=== PATIENT | male | born 1945 | race Caucasian/White ===

== ENCOUNTER 2017-10-07 11:27 | Inpatient (IN) | payer MEDICARE ==
[~2017-10-07] VITALS: Ht 160 cm; Wt 57.7 kg
[~2017-10-07 11:27] MED LIST: AMANTADINE100 MG PO; ASPIRIN LOW DOS81 M1 PO; ATENOLOL50 MG PO; AUGMENTIN500TAB PO; GLIPIZIDE5 M1 PO; GLIPIZIDE5 MG PO; LISINOP/HCTZ1 TAB PO; LISINOPRIL PO; LISINOPRIL10 MG PO; LOPRESSOR 550 MG/TAB PO; METFORMIN1000 MG PO; METFORMIN500 MG PO; ZESTRIL PO
--- NOTE | 2017-10-07 11:52 | NUR ---
PT TO ER ROOM 15 BY EMS. PT UNDRESSED BY STAFF AND PLACED IN BAG. EXTREMELY STRONG URINE ODOR FROM URINE SOAKED CLOTHING. PT CHANGED INTO GOWN, GIVEN SHEET, ON CARDIAC/BP/O2 MONITOR.
[2017-10-07 12:44] LABS: HEMATOCRIT 29.3 % (39.0-50.0); HEMOGLOBIN 10.1 g/dl (14.0-18.0); IMMATURE GRANULOCYTES 0.8 % (0.0-1.0); MEAN CELL VOLUME 85.2 fL CALC (80.0-100.0); MEAN CORPUSCULAR HGB 29.4 pG CALC (26.0-32.0); MEAN CORPUSCULAR HGB CONC 34.5 g/L CALC (32.0-36.0); NEUT# 13.76 thou/uL (1.82-7.42); RED BLOOD COUNT 3.44 mill/uL (4.70-6.10); RED CELL DISTRI WIDTH 11.5 % (11.5-15.5)
[2017-10-07 12:59] LABS: ALBUMIN 2.7 g/dL (3.2-5.0); BILIRUBIN, TOTAL 0.3 mg/dL (0.0-1.4); CREATININE 3.1 mg/dL (0.7-1.3); POTASSIUM 4.7 mmol/l (3.5-5.1); TOTAL PROTEIN 5.8 g/dL (6.3-8.2)
[2017-10-07 13:54] LABS: URINE BILIRUBIN - DIPSTICK NEGATIVE (NEGATIVE); URINE BLOOD DIPSTICK SMALL (NEGATIVE); URINE COLOR YELLOW; URINE GLUCOSE - DIPSTICK >=1000 mg/dL (NEGATIVE); URINE KETONE NEGATIVE (NEGATIVE); URINE LEUK ESTERASE NEGATIVE (NEGATIVE); URINE NITRITE - DIPSTICK NEGATIVE (Negative); URINE PROTEIN - DIPSTICK 100 mg/dL (NEG-TRACE); URINE SPECIFIC GRAVITY 1.015; URINE UROBILINOGEN - DIPSTICK 0.2 E.U./dL (0.2)
[2017-10-07 14:00] LABS: URINE CLARITY CLEAR
--- NOTE | 2017-10-07 14:24 | NUR ---
PT SPEAKS APPROPRIATELY, ALTHOUGH WITH EYES CLOSED. PT WAS ABLE TO PROVIDE URINE SPECIMEN BOTTLE HAD BEEN LEFT BETWEEN HIS LEGS.
[2017-10-07 14:27] LABS: URINE SQUAMOUS EPITHELIAL CELL FEW EPI/hpf (0-FEW)
--- NOTE | 2017-10-07 16:10 | NUR ---
PT SHEETS CHANGED OUT PER WETNESS FROM LEAKING IV SITE. IV REMOVED AND REPLACED. 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
--- NOTE | 2017-10-07 16:35 | NUR ---
REPORT CALLED TO BRETT, TO FLOOR SOON.
[2017-10-07 16:41] VITALS: BP 134/80
--- NOTE | 2017-10-07 16:55 | NUR ---
PT.ARRIVED TO THE FLOOR VIA STRETCHER ACCOMPANIED BY REUBEN OF ED. PT.IS VERY WEAK UPON AMBULATION. PT.ASSESSED, ASSISTED TO [facility] WHERE HE HAD A MODERATE BROWN SOFT BM, PT.URINATED 125CC OF CLEAR YELLOW URINE. PT.LUNG SOUNDS ARE DIMINISHED IN ALL QUADRANTS. PT.DENIES PAIN/N/V AT THIS TIME. PT.SMELLS OF URINE AND STOOL. PT.REPORTS BEING BLIND IN HIS LEFT EYE AND MOSTLY BLIND IN LEFT EYE, PT.SITE APPEARS TO BE VERY LIMITED. CALL LIGHT WAS ADJUSTED FOR LIMITED VISION INDIVIDUALS AND PT.EDUCATED ON ACCESSING CALL LIGHT AND ASKING FOR ASSISTANCE BEFORE AMBULATING. PT.REPORTS THAT HE LIVES BY HIMSELF IN [facility] AND HAS A FRIEND THAT DRIVES HIM TO THE STORE. PT.WAS LOC TO SELF//LOCATION AND SITUATION AND DATE, BUT SEEMS TO BE SOMEWHAT LIMITED TO FOLLOWING DIRECTIONS. V/S AND BLOOD SUGAR HAVE BEEN ASSESSED. PT.LEFT IN BED TALKING ON CELL PHONE, BED ALARM ON AND CALL LIGHT W/IN REACH
--- NOTE | 2017-10-07 16:56 | NUR ---
PT TAKEN TO ROOM 271 WITHOUT INCIDENT, REPORT WAS TO BRETT.
--- NOTE | 2017-10-07 19:00 | NUR ---
RECEIVED CHANGE OF SHIFT REPORT FROM JAMES WEST. PATIENT VISUALLY IMPAIRED AND LYING IN BED AND APPEARS NOT TO BE IN NAY APPARENT ACUTE DISTRESS OR DISCOMFORT. DENIES PAIN. WILL CONTINUE TO MONITOR.
--- NOTE | 2017-10-07 19:00 | NUR ---
CALLED AND ORDERED PT.TO BE BLADDER SCANNED. RESULTS WERE CALLED BACK TO . HE ALSO ORDERED STRICT I&O'S TO BE KEPT ON PT. ORDER WAS WRITTEN IN CHART AND PASSED ON TO JAMES ABEL UPON REPORT.
[2017-10-07 19:25] VITALS: BP 143/89
[2017-10-07 23:58] VITALS: BP 148/78
--- NOTE | 2017-10-08 | NUR ---
PT INCONTINENT OF URINE. 2 HEAVILY SOAKED ABSORBANT PADS REMOVED.
[2017-10-08 04:00] VITALS: BP 135/70
--- NOTE | 2017-10-08 04:00 | NUR ---
PT RESTING QUIETLY. NO APPARENT ACUTE CHANGES NOTED IN PATIENT'S CONDITION.
[2017-10-08 05:23] LABS: HEMATOCRIT 27.5 % (39.0-50.0); HEMOGLOBIN 9.8 g/dl (14.0-18.0); MEAN CELL VOLUME 84.9 fL CALC (80.0-100.0); MEAN CORPUSCULAR HGB 30.2 pG CALC (26.0-32.0); MEAN CORPUSCULAR HGB CONC 35.6 g/L CALC (32.0-36.0); PLATELET COUNT 404 thou/uL (130-400); RED BLOOD COUNT 3.24 mill/uL (4.70-6.10); RED CELL DISTRI WIDTH 11.2 % (11.5-15.5)
[2017-10-08 05:46] LABS: CHOLESTEROL HDL RATIO 5.3 (<4.4 (CALC)); CREATININE 2.8 mg/dL (0.7-1.3); MAGNESIUM 1.7 mg/dL (1.6-2.3)
--- NOTE | 2017-10-08 07:23 | NUR ---
REPORT RECEIVED FROM JAMES ABEL. PT SUPINE IN BED. BEING CLEANED AFTER INCONTINENCE OF URINE. STRICT I & O'S, MUCH POSSIBLE, REVIEWED WITH WET PRESS TENDER AND PT. FALL PRECAUTIONS REINFORCED. PT REFUSING TO ANSWER QUESTIONS, STATES "IM TOO SLEEPY FOR THIS." VERY ALERT AND ORIENTED. CALL LIGHT REVIEWED AND IN REACH.
[2017-10-08 07:32] VITALS: BP 144/74
--- NOTE | 2017-10-08 11:39 | NUR ---
[facility] BINGHAM AT BEDSIDE.
[2017-10-08 15:36] VITALS: BP 161/88
--- NOTE | 2017-10-08 16:23 | NUR ---
Saw pt for med education rounds. Explained current pharmacological therapy. Pt noted no side effects. Pt had no concerns or questions. Pt verbalized understanding.
[2017-10-08 16:44] VITALS: BP 150/76
--- NOTE | 2017-10-08 17:42 | NUR ---
PT SITTING UPRIGHT IN BED. TALKING ON CELLPHONE. CALL LIGHT WITHIN REACH.
[2017-10-08 19:35] VITALS: BP 128/72
--- NOTE | 2017-10-08 19:37 | NUR ---
BEDSIDE REPORT RECEIVED FROM JAMES BURDICK. PT RESTING IN BED TALKING TO HIMSELF AND HAS EYES CLOSED. ALERT AND PLEASANT AT THIS TIME. DENIES PAIN CURRENTLY. RESPIRATIONS EVEN AND UNLABORED ON ROOM AIR. PLAN OF CARE DISCUSSED. PT ENCOURAGED TO VERBALIZE CONCERNS. STATES UNDERSTANDING. SAFETY MEASURES IN PLACE. CALL LIGHT WITHIN REACH.
--- NOTE | 2017-10-09 | NUR ---
PT RESTLESS AND FREQUENTLY USING CALL LIGHT. INCONTINENT OF BLADDER SEVERAL TIMES; HYGIENE GIVEN. C/O BEING HUNGRY AND REQUESTING SNACKS; LOW SUGAR OPTIONS GIVEN. BLOOD GLUCOSE WNL FOR PT. ATTEMPTING TO GET OOB X 1. TOSHIA PAIN. RESPIRATIONS EVEN AND UNLABORED. SAFETY MEASURES IN PLACE INCLUDING BED ALARM. CALL LIGHT WITHIN REACH.
--- NOTE | 2017-10-09 05:15 | NUR ---
PT CONTINUES TO REQUESTS SNACKS; SUGAR FREE PUDDING GIVEN. PT IS INCREASINGLY AGITATED; RESTORIL GIVEN AT 0300 WAS INEFFECTIVE FOR SLEEP. PT IS CALLING OUT LOUDLY AND WANTS ARE NOT SATISFIED EVEN AFTER FULFULLING REQUESTS. BLOOD SUGAR IS 191. BECOMING MORE AGRESSIVE; PHYSICALLY HIT THE SIDE OF THE BED AND STATES, "IF I HAD A KNIFE, I WOULD CUT ALL OF YOU." WILL CONTINUE TO MONITOR AND PRIORITIZE SAFETY.
[2017-10-09 05:30] VITALS: BP 144/73
[2017-10-09 05:55] LABS: CREATININE 2.9 mg/dL (0.7-1.3); MAGNESIUM 1.7 mg/dL (1.6-2.3)
[2017-10-09 05:58] LABS: POTASSIUM 5.4 mmol/l (3.5-5.1)
[2017-10-09 06:01] LABS: HEMATOCRIT 28.2 % (39.0-50.0); HEMOGLOBIN 9.4 g/dl (14.0-18.0); IMMATURE GRANULOCYTES 0.9 % (0.0-1.0); MEAN CELL VOLUME 89.2 fL CALC (80.0-100.0); MEAN CORPUSCULAR HGB 29.7 pG CALC (26.0-32.0); MEAN CORPUSCULAR HGB CONC 33.3 g/L CALC (32.0-36.0); NEUT# 13.69 thou/uL (1.82-7.42); RED BLOOD COUNT 3.16 mill/uL (4.70-6.10); RED CELL DISTRI WIDTH 11.6 % (11.5-15.5)
--- NOTE | 2017-10-09 06:27 | NUR ---
HALDOL GIVEN PER MD ORDERS WITH GOOD EFFECT FOR AGRESSION AND YELLING OUT. PT STILL SLIGHTLY AGITATED AND SPEAKING ON CELL PHONE AT THIS TIME. NURSE ASKED TO SPEAK WITH CALLER; CALLER WAS PATIENTS NEIGHBOR. ACCORDING TO NEIGHBOR THEY CALLED EMS BECAUSE PATIENT WAS "LIVING IN HORRIBLE CONDITIONS AND WITHOUT RUNNING WATER. HE IS BARELY ABLE TO CARE FOR HIMSELF." WILL PASS ON TO DAY SHIFT AND CASE MANAGEMENT.
--- NOTE | 2017-10-09 07:23 | NUR ---
REPORT RECEIVED FROM JAMES WALTERS. PT SLEEPING AT THIS TIME. CALL LIGHT WITHIN REACH. BED ALARM SET FOR SAFETY.
[2017-10-09 07:57] VITALS: BP 150/78
--- NOTE | 2017-10-09 08:18 | NUR ---
PT AWAKENED FOR VITAL SIGNS AND AM MEDICATION. PT REPORTS "I JSUT WANT TO SLEEP". PLAN OF CARE DISCUSSED. REPORTING OF CONCERNS ENCOURAGED. FALL PRECAUTIONS REINFORCED. CALL LIGHT REVIEWED AND IN REACH. PT STATES UNDERSTANDING.
--- NOTE | 2017-10-09 11:00 | NUR ---
DR. SMALL IN TO SEE PT AT THIS TIME.
[2017-10-09 12:00] VITALS: BP 147/69
[2017-10-09 16:15] VITALS: BP 166/87
--- NOTE | 2017-10-09 18:12 | NUR ---
PT SITTING IN CHAIR AT BEDSIDE, EATING DINNER. DENIES COMPLAINTS. CALL LIGHT WITHIN REACH.
[2017-10-09 19:10] VITALS: BP 130/67
--- NOTE | 2017-10-09 19:20 | NUR ---
REPORT RECIEVED; PT OOB IN BEDSIDE CHAIR. PT X2 PERSON ASSIST BACK TO BED. PT DENIES ANY PAIN OR DISCOMFORT. BED ALARM IN PLACE FOR SAFETY. PT ENCOURAGED TO CALL FOR ASSISTANCE. CALL LIGHT REVIEWED AND WITHIN REACH.
--- NOTE | 2017-10-09 20:40 | NUR ---
PT WOKE FOR ASSESSMENT. PT ALERT AND ORIENTED; AGE AND MONTH CORRECT. RESP EVEN AND UNLABORED. LUNGS CLEAR; DIMINISHED IN BASES. NO DISTRESS NOTED. ABD SOFT; ACTIVE BOWEL SOUNDS NOTED. PEDAL PULSES PALPATED BILAT. TRACE ANKLE EDEMA NOTED BILAT. TELE IN PLACE. PT DENIES ANY PAIN OR DISCOMFORT. SAFETY PRECAUTIONS REINFORCED. CALL LIGHT WITHIN REACH. BED ALARM ON
--- NOTE | 2017-10-09 21:40 | NUR ---
NEW IV SITE; #22 RFA. STARTED BY RONDA CHUN.
[2017-10-10] VITALS (7 sets, daily range): BP systolic 142–158; BP diastolic 74–92
--- NOTE | 2017-10-10 00:30 | NUR ---
PT WOKE FOR VITALS. IV PATENT; NO REDNESS OR EDEMA NOTED. TELE IN PLACE. PT DENIES ANY PAIN OR DISCOMFORT. CALL LIGHT WITHIN REACH. BED ALARM ON
--- NOTE | 2017-10-10 03:55 | NUR ---
PT VOIDED 200CC CLEAR YELLOW URINE. IV PATENT; NO REDNESS OR EDEMA NOTED. PT DENIES PAIN OR DISCOMFORT. RESP EVEN AND UNLABORED. ASSESSMENT UNCHANGED. TELE IN PLACE. CALL LIGHT WITHIN REACH. BED ALARM ON
[2017-10-10 05:02] LABS: HEMATOCRIT 27.8 % (39.0-50.0); HEMOGLOBIN 9.2 g/dl (14.0-18.0); IMMATURE GRANULOCYTES 0.9 % (0.0-1.0); MEAN CELL VOLUME 88.3 fL CALC (80.0-100.0); MEAN CORPUSCULAR HGB 29.2 pG CALC (26.0-32.0); MEAN CORPUSCULAR HGB CONC 33.1 g/L CALC (32.0-36.0); NEUT# 11.54 thou/uL (1.82-7.42); RED BLOOD COUNT 3.15 mill/uL (4.70-6.10); RED CELL DISTRI WIDTH 11.8 % (11.5-15.5)
[2017-10-10 05:38] LABS: CREATININE 2.7 mg/dL (0.7-1.3); POTASSIUM 4.7 mmol/l (3.5-5.1)
--- NOTE | 2017-10-10 07:42 | NUR ---
REPORT RECEIVED FROM TIAGO CANNON. PT SITTING IN CHAIR AT BEDSIDE. DENIES PAIN. REPORTING OF CONCERNS ENCOURAGED. PLAN OF CARE DISCUSSED. FALL PRECAUTIONS REINFORCED. CALL LIGHT REVIEWED AND IN REACH. PT STATES UNDERSTANDING.
--- NOTE | 2017-10-10 11:12 | NUR ---
Drug Selected: Vancomycin Age: 72 years Weight: 57 kg Height: 63 in Gender: Male SCR: 2.7 mg/dl Calculated Values: Dosing weight: 57 kg IBW: 56.90 kg CRCL (ml/min): 19.6 Final Report: Give Vancomycin 1000 mg q48 hrs WE WILL CONTINUE TO WATCH THE PATIENTS CrCl
--- NOTE | 2017-10-10 11:27 | NUR ---
DR. SMALL IN TO SEE PT.
--- NOTE | 2017-10-10 13:25 | NUR ---
PT REFUSING PHYSICAL THERAPY. STATES "I CANT DO THAT I WILL ." PT REMINDED HE HAS WALKED TODAY W/ ASSISTANCE. PT DENIES THIS HAPPENED.
--- NOTE | 2017-10-10 13:53 | NUR ---
ATTEMPTED TO STAND AND WALK PATIENT. HE REFUSED. HAD NURSING ATTEMPT TO ENCOURAGE HIM TO PARTICIPATE BUT HE IS ADAMANT ABOUT WANTING TO STAND AND WALK. STATES IT WILL KILL HIM. WILL ATTEMPT AGAIN TOMORROW.
--- NOTE | 2017-10-10 16:34 | NUR ---
PT SITTING IN CHAIR AT BEDSIDE. FRIEND AT BEDSIDE. NO COMPLAINTS AT THIS TIME.
--- NOTE | 2017-10-10 19:25 | NUR ---
REPORT RECIEVED; PT RESTING IN BED. PT DENIES ANY PAIN OR DISCOMFORT. PT ENCOURAGED TO CALL FOR ASSISTANCE. FREQUENT ROUNDS MADE. BED ALARM ON FOR SAFETY. CALL LIGHT WITHIN REACH.
--- NOTE | 2017-10-10 20:40 | NUR ---
PT ALERT AND ORIENTED. RESP EVEN AND UNLABORED; NO DISTRESS NOTED. TELE IN PLACE. ABD SOFT; ACTIVE BOWEL SOUNDS NOTED. PEDAL PULSES PALPATED BILAT. TRACE ANKLE EDEMA NOTED BILAT. IV RFA PATENT; NO REDNESS OR EDEMA NOTED. PT REPOSITIONED FOR COMFORT. PT ENCOURAGED TO CALL FOR ASSISTANCE. BED ALARM ON FOR SAFETY. CALL LIGHT WITHIN REACH.
--- NOTE | 2017-10-11 00:40 | NUR ---
PT REPOSITIONED FOR COMFORT. RESP EVEN AND UNLABORED. PT DENIES PAIN. TELE IN PLACE. IV PATENT. CALL LIGHT WITHIN REACH.
--- NOTE | 2017-10-11 04:19 | NUR ---
PT YELLING OUT AND RESTLESS. PT REPOSITIONED SEVERAL TIMES PER REQUEST. PT WANTS ARE NOT SATISFIED EVEN AFTER FULFILLING REQUEST. PT STATES "IM TELLING DR CASTANEDA ABOUT THIS". PT RESTING QUIETLY AT THIS TIME. BED ALARM IN PLACE FOR SAFETY. PT ENCOURAGED TO CALL FOR ASSISTANCE. PT DENIES PAIN OR DISCOMFORT. RESP EVEN AND UNLABORED; NO DISTRESS NOTED. CALL LIGHT WITHIN REACH.
[2017-10-11 04:25] VITALS: BP 153/80
[2017-10-11 04:54] LABS: HEMATOCRIT 29.3 % (39.0-50.0); HEMOGLOBIN 9.7 g/dl (14.0-18.0); IMMATURE GRANULOCYTES 0.6 % (0.0-1.0); MEAN CORPUSCULAR HGB 29.1 pG CALC (26.0-32.0); MEAN CORPUSCULAR HGB CONC 33.1 g/L CALC (32.0-36.0); NEUT# 12.11 thou/uL (1.82-7.42); RED BLOOD COUNT 3.33 mill/uL (4.70-6.10); RED CELL DISTRI WIDTH 11.7 % (11.5-15.5)
[2017-10-11 05:13] LABS: CREATININE 2.8 mg/dL (0.7-1.3); POTASSIUM 4.2 mmol/l (3.5-5.1)
--- NOTE | 2017-10-11 07:00 | NUR ---
BLOOD SUGAR: 47. PT ASYMPTOMIC; TALKING, DRINKING ORANGE JUICE W/SUGAR. ALERT AND ORIENTED.
--- NOTE | 2017-10-11 07:20 | NUR ---
REPORT RECEIVED FROM NIGHT NURSE. PT.IS AWAKE AND DRINKING OJ W/SUGAR DUE TO BLOOD SUGAR 47. PT.IS LOC AND TALKING. AIDE IS IN W/PT.
--- NOTE | 2017-10-11 07:28 | NUR ---
BLOOD SUGAR RECHECK: 74. PT OFFERS NO COMPLAINTS AT THIS TIME. CALL LIGHT WITHIN REACH.
[2017-10-11 08:55] VITALS: BP 156/85
--- NOTE | 2017-10-11 08:55 | NUR ---
PT.IS UPRIGHT IN BED EATING BREAKFAST AT THIS TIME. V/S ASSESSED. PT.DENIES ANY PAIN/N/V AT THIS TIME. BLOOD SUGAR HAS BEEN REASSESSED @99. WILL FOLLOW-UP WITH ASSESSMENT WHEN PT.IS FINISHED EATING BREAKFAST.
--- NOTE | 2017-10-11 11:05 | NUR ---
PT WAS SEEN RESTING IN THE BED WITH EYES CLOSED. REFUSED PHYSICAL THERAPY STATING HE WAS SO TIRED TODAY AND ONLY WANTED TO SLEEP.
[2017-10-11 11:09] VITALS: BP 157/77
--- NOTE | 2017-10-11 14:30 | NUR ---
O.T. attempted to evaluate patient at 12:45 p.m. and patient adamantly refused stating "I just want to be left alone." O.T. encouraged patient and offered set up assist to eat lunch, however, refused.
[2017-10-11 15:37] VITALS: BP 160/81
--- NOTE | 2017-10-11 17:35 | NUR ---
PT.MEDICATED FOR BLOOD SUGAR OF 313 ORDERS PROVIDE. PT.IS ON HIS RIGHT SIDE POSITIONED W/PILLOWS ASSISTING. PT.DENIES ANY OTHER NEEDS AT THIS TIME, HE IS "TRYING TO SLEEP."
--- NOTE | 2017-10-11 18:18 | NUR ---
PT.REPOSITIONED AND LARISSA REEDER IS IN ASSISTING FEED PT.
[2017-10-11 19:00] VITALS: BP 163/85
--- NOTE | 2017-10-11 19:20 | NUR ---
REPORT RECIEVED; PT SITTING IN SEMI-FOWLERS POSITION. NO DISTRESS NOTED. PT DENIES PAIN OR DISCOMFORT. IV PATENT. BED ALARM IN PLACE FOR SAFETY. CALL LIGHT WITHIN REACH.
--- NOTE | 2017-10-11 20:10 | NUR ---
PT WOKE FOR ASSESSMENT; ALERT AND ORIENTED. RESP EVEN AND UNLABORED. LUNGS CLEAR; DIMINISHED IN BASES. TELE IN PLACE. ABD SOFT; ACTIVE BOWEL SOUNDS NOTED. PEDAL PULSES PALPATED BILAT. TRACE ANKLE EDEMA NOTED BILAT. IV RFA PATENT; NO REDNESS OR EDEMA NOTED. PT ENCOURAGED TO CALL FOR ASSISTANCE. FREQUENT ROUNDS MADE. CALL LIGHT WITHIN REACH.
--- NOTE | 2017-10-11 21:20 | NUR ---
PT OFF FLOOR VIA WHEELCHAIR WITH IV TO ECHO; ASSISTED BY STAFF.
--- NOTE | 2017-10-11 22:16 | NUR ---
PT BACK ON FLOOR VIA WHEELCHAIR WITH STAFF.
--- NOTE | 2017-10-11 22:20 | NUR ---
PT STATES " I WANT TO GET UP TO BEDSIDE CHAIR, I SLEEP IN A CHAIR AT HOME." PT X2 PERSON ASSIST TO BEDSIDE CHAIR. PT REPOSITIONED IN CHAIR. SAFETY PRECAUTIONS REINFORCED.
[2017-10-11 23:04] VITALS: BP 155/85
--- NOTE | 2017-10-11 23:18 | NUR ---
PT ASSISTED TO BSC; LARGE BM. HYGIENE PROVIDED; PT ASSISTED BACK TO BEDSIDE CHAIR. PT DENIES ANY PAIN OR DISCOMFORT. CALL LIGHT WITHIN REACH.
[2017-10-12] VITALS (13 sets, daily range): BP systolic 120–163; BP diastolic 69–94
--- NOTE | 2017-10-12 00:30 | NUR ---
PT ASSISTED TO BED; RESP EVEN AND UNLABORED. TELE IN PLACE. NO DISTRESS NOTED. CALL LIGHT WITHIN REACH.
--- NOTE | 2017-10-12 02:00 | NUR ---
PT HYPERVENTILATING; O2 APPLIED FOR PT COMFORT. O2 SAT 94% ON O2 2L. BLOOD SUGAR; 166. PT REPOSITIONED FOR COMFORT. TELE IN PLACE. CALL LIGHT WITHIN REACH.
--- NOTE | 2017-10-12 02:47 | NUR ---
RESP EVEN AND UNLABORED WITH O2 IN PLACE; PT DENIES ANY PAIN OR DISCOMFORT. PT O2 94%. TELE IN PLACE. IV PATENT; NO REDNESS OR EDEMA NOTED. CALL LIGHT WITHIN REACH.
--- NOTE | 2017-10-12 04:01 | NUR ---
PT SITTING ON SIDE OF BED WITH O2 ON FOREHEAD. O2 PUT IN PLACE. PT HYPERVENTILATING. PT ASSISTED TO HIGH FOLWERS POSITION IN BED. VITALS OBTAINED: BP: 171/97 HR 92 O2 83% ON 2L. O2 SET AT 4L, PT O2 SAT REMAINED AT 83%. RT ASSESSED PT; PT O2 SAT REMAINED THE SAME. RT STATED PT LUNGS "SOUNDED WET". DR SMALL CALLED, NEW ORDERS RECIEVED; LASIX 40 MG IV PUSH X1 STAT, CHEST X-RAY, SALAS CATH, BIPAP, TRANSFER TO ICU. IV LASIX GIVEN; SALAS INSERTED; PT SENT TO ICU.
--- NOTE | 2017-10-12 04:45 | NUR ---
PT RECEIVED TO ICU BED 1 IN BED FROM MED SURG ACCOMPANIED BY MED SURG STAFF AND RESP THERPY. PT ON BIPAP. ACCU CHECK OBTAINED 83. PT RESTING WITH EYES CLOSED. AROUSES TO VERBAL STIMULI. RESP ARE EVEN AND UNLABORED. NO DISTRESS NOTED. SALAS DRAINING DARK YELLOW URINE. HR REGULAR. #22 RFA SALINE LOCKED. NO REDNESS OR EDEMA NOTED. WILL CONTINUE TO [facility]
--- NOTE | 2017-10-12 06:15 | NUR ---
PT AWAKE IN BED. REQUESTING TO BE TAKEN OFF BIPAP. INSTRUCTED PT THAT MAYBE LATER THIS MORNING HE COULD BE TAKEN OFF OF BIPAP BUT NOT AT THIS TIME.
--- NOTE | 2017-10-12 07:25 | NUR ---
PT RESTING IN BED, ATTEMTING TO TALK THRU BI PAP MASK, AM ASSESSMENT COMPLETED, SEE INTERVENTIONS, SATS 100% ON BI-PAP, LUNGS DIMINSHED, WITH NO DISTRESS NOTED, ABD SOFT BS ACTIVE, LAST BM YESTERDAY PER REPORT, SKIN INTACT PT IS BLIND PER REPORT, PT STATES HE IS BLIND IN ONE EYE AND VERY LIMITED IN THE OTHER, 1+ EDEMA NOTED TO BILATERAL LE, SALAS CATHETER INTACT DRAINING CLEAR YELLOW URINE W/O INCIDENT, PT DENIES PAIN OR DISTRESS, IV SITE INTACT WITH NO DRAINAGE NOTED, SITE IS SALINE LOCKED, COMFORT MEASURES PROVIDED, CALL [place] WITHIN REACH, ENCOURAGED TO CALL FOR ANY NEEDED ASSISTANCE, SAFETY MEASURES REINFORCED.
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
--- NOTE | 2017-10-12 08:10 | NUR ---
PT CONTINUES TO TOLERATE BI PAP OFF AND NC AT 2L, NO SHORTNESS OF BREATH OR DISTRESS NOTED, CALL [place] WITHIN REACH, EASILY VISIBLE FROM NURSES STATION FOR SAFETY, WILL CONTINUE TO MONITOR.
--- NOTE | 2017-10-12 08:41 | NUR ---
CONTINUES TO TOLERATE BEING OFF BI PAP SATS 95% ON 2L NC WITH NO SOB OR DISTRESS NOTED, TOLERATED AM MEAL W/O INCIDENT, AND 75% INTAKE OF MEAL, NO SHORTNESS OF BREATH OR DISTRESS NOTED.
--- NOTE | 2017-10-12 09:00 | NUR ---
PT FED SELF BUT STATES HE AT E "A LITTLE BIT" CAUSE HE CAN'T FEED HIMSELF, STARTS TALKING ABOUT HE'S NOT GODD AND YOUR NOT GOD, WHEN ASKED WHY HE CAN'T/DOESN'T FEED HIMSELF PT JUST RAMBLES ABOUT HE HAS FAMILY AND HE DOES WHAT HE CAN FOR HIMSELF, COMFORT MEASURES PROVIDED, WILL CONTINUE TO MONITOR.
--- NOTE | 2017-10-12 10:00 | NUR ---
PT OFFERED WATER, AND TOOK AM MEDICATIONS W/O INCIDENT, CALL [place] WITHIN REACH.
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
--- NOTE | 2017-10-12 11:28 | NUR ---
VISITOR AT BEDSIDE, STATES HE IS THEONE THAT "HELPS TAKE CARE OF HIM, BIRNGS HIM MEALS AND STUFF"
--- NOTE | 2017-10-12 12:01 | NUR ---
VISITOR REMAINS AT BEDSIDE, WHEN ASKED WITH VISITOR PRESENT IF PT FEEDS HIMSELF AT HOME HE SAYS NO VISITOR STATES YES, WHEN ASKED IF SHE (VISITOR) FEEDS HIM EVERY MEAL HE STATES YES VISITOR IS SHAKING HER HEAD NO VISITOR DECLINES BEING PTS SIGNIFICANT OTHER STATES HE IS JUST A FRIEND THAT HELPS HIM OUT, PT REFERS TO HER HIS GIRLFRIEND. CASE MGMT INTO SEE PATIENT, AGAIN PT GETS VERY UPSET AND DEFELECTS CONVERSATION WHEN ASKED ABOUT HIS SELF CAREA BILITITES AT HOME, PT STATES "WELL WHEN IT HAPPENS TO YOU THEN YOU CAN TALK ABOUT IT" IN REFERNCE TO WHY HE CAN'T FEED HIMSELF OR DO FOR HIMSELF BECAUSE OF HIS VISUAL IMPAIRMENT.
--- NOTE | 2017-10-12 12:41 | NUR ---
HOT TEA PROVIDED REQUESTED BY PATIENT.
--- NOTE | 2017-10-12 12:52 | NUR ---
PT CALLING OUT HELP, REQUESTING TO HAVE HIS CELL PHONES, FOUND IN BELONGINGS AND PROVIDED TO PATIENT
--- NOTE | 2017-10-12 13:16 | NUR ---
PT OOB TO RECLINER, WITH ONE MOD ASSIST, PT ABLE TO BEAR WEIGHT WELL, BALANCE MODERATE TOOK FEW STEPS TO RECLINER ADN REPOSITIONED SELF WITH DIRECTION, TOLERATED ACTIVITY WELL, CALL [place] WITHIN REACH
--- NOTE | 2017-10-12 13:58 | NUR ---
PT REMAINS SITTING UP IN RECLINER, CALL [place] WITHIN REACH
--- NOTE | 2017-10-12 15:00 | NUR ---
PT REMAINS SITTING UP IN RECLINER WITH EYES CLOSED, OFFERS NO COMPLAINTS, CALL [place] WITHIN REACH
--- NOTE | 2017-10-12 16:24 | NUR ---
PT SITTING UP[ IN RECLINER, PT FOUND WITH ALL MONITORING EQUIPMENT OFF ASKING ABOUT PEEING, FOUND WITH OXYGEN OFF WELL, REMINDED ABOUT SALAS CATHTER, ALL MONITORING EQUIPMENT REAPPLIED, PT REMAINS WITHOUT O2 SATS 94-97% ON ROOM AIR WITH NO SHORTNESS OF BREATH OR DISTRESS NOTED, CALL [place] WITHIN REACH
--- NOTE | 2017-10-12 16:31 | NUR ---
PT CALLING OUT AGAIN ASKING WHEN ALL THESE WIRES CAN BE REOMVED, REMINDED AGAIN ABOUT REASON FOR MONITORING EQUIPMENT, CALL [place] WITHIN REACH
--- NOTE | 2017-10-12 16:48 | NUR ---
IN TO SEE PATIENT, CALL [place] WITHIN REACH
--- NOTE | 2017-10-12 17:34 | NUR ---
SET UP ASSIST PROVIDED FOR PM MEAL
--- NOTE | 2017-10-12 19:00 | NUR ---
PT SITTING UP IN RECLINER. PT IS ALERT AND ORIENTED X3. RESP ARE EVEN AND UNLABORED. LUNGS ARE CLEAR. NO DISTRESS NOTED. HR REGULAR. PERIPHERAL PULSES PALPABLE. TRACE EDEMA NOTED TO BILATERAL EXTREMITIES. BS ACTIVE. SALAS DRAINING CLEAR YELLOW URINE. #22 RFA SALINE LOCKED. NO REDNESS OR EDEMA NOTED. WILL CONTINUE TO MONITOR
--- NOTE | 2017-10-12 22:00 | NUR ---
PT RESTING IN CHAIR WITH EYES CLOSED. RESP ARE EVEN AND UNLABORED. NO DISTRESS NOTED. WILL CONTINUE TO MONITOR
[2017-10-13] VITALS (8 sets, daily range): BP systolic 114–158; BP diastolic 65–84
--- NOTE | 2017-10-13 00:30 | NUR ---
PT ASSISTED BACK TO BED. 2 PERSON ASSIST. WILL CONTINUE TO MONITOR
--- NOTE | 2017-10-13 02:00 | NUR ---
PT RESTING IN BED WITH EYES CLOSED. RESP ARE EVEN AND UNLABORED. NO DISTRESS NOTED. WILL CONTINUE TO MONITOR
--- NOTE | 2017-10-13 03:10 | NUR ---
PT STATES THAT HE FEELSLIKE HE IS IN A COLD SWEAT. ACCU CHECK IS 64. 2 ORANGE JUICE PRVIDED.
--- NOTE | 2017-10-13 04:00 | NUR ---
ACCUCHECK 38. AMP OF D50 IV PUSHN GIVEN. #22 STARTED IN RFA X2 ATTEMPTS. PT TOLERTATED WELL. PT GIVEN ORANGE JUICE WHILE IV WAS STARTED.
--- NOTE | 2017-10-13 04:28 | NUR ---
PT PROVIDED A TURKEY SANDWICH. WILL RECHECK ACCUCHECK.
--- NOTE | 2017-10-13 04:49 | NUR ---
PT FELL ASLEEP AND DID NOT EAT SANDWAICH. ACCUCHECK 149
--- NOTE | 2017-10-13 05:30 | NUR ---
LAB INTO DRAW AM LABS
[2017-10-13 05:43] LABS: HEMATOCRIT 31.3 % (39.0-50.0); HEMOGLOBIN 10.4 g/dl (14.0-18.0); IMMATURE GRANULOCYTES 0.8 % (0.0-1.0); MEAN CELL VOLUME 88.9 fL CALC (80.0-100.0); MEAN CORPUSCULAR HGB 29.5 pG CALC (26.0-32.0); MEAN CORPUSCULAR HGB CONC 33.2 g/L CALC (32.0-36.0); NEUT# 10.5 thou/uL (1.82-7.42); RED BLOOD COUNT 3.52 mill/uL (4.70-6.10); RED CELL DISTRI WIDTH 11.9 % (11.5-15.5)
[2017-10-13 05:53] LABS: ALBUMIN 2.7 g/dL (3.2-5.0); BILIRUBIN, TOTAL 0.2 mg/dL (0.0-1.4); CREATININE 2.8 mg/dL (0.7-1.3); POTASSIUM 4.3 mmol/l (3.5-5.1); TOTAL PROTEIN 5.8 g/dL (6.3-8.2)
--- NOTE | 2017-10-13 06:00 | NUR ---
PT RESTING IN BED WITH EYES CLOSED. AROUSES TO VERBAL STIMULI. RESP ARE EVEN AND UNLABORED. NO DISTRESS NOTED. WILL CONTINUE TO MONITOR
--- NOTE | 2017-10-13 07:20 | NUR ---
PT RESTING IN BED, WITH EYES CLOSED, AM ASSESSMENT COMPLETED, SEE INTERVENTIONS, SATS REMAIN 94-96% ON ROOM AIR, LUNGS DIMINSHED, WITH NO DISTRESS NOTED, ABD SOFT BS ACTIVE, LAST BM 10/12/17 PER REPORT, SKIN INTACT PT IS BLIND PER REPORT, PT STATES HE IS BLIND IN ONE EYE AND VERY LIMITED IN THE OTHER, 1+ EDEMA NOTED TO BILATERAL LE, SALAS CATHETER INTACT DRAINING CLEAR YELLOW URINE W/O INCIDENT, PT DENIES PAIN OR DISTRESS, IV SITE INTACT WITH NO DRAINAGE NOTED, SITE IS SALINE LOCKED, COMFORT MEASURES PROVIDED, CALL [place] WITHIN REACH, ENCOURAGED TO CALL FOR ANY NEEDED ASSISTANCE, SAFETY MEASURES REINFORCED.
--- NOTE | 2017-10-13 07:45 | NUR ---
BREAKFAST AT BEDSIDE, PT SLEEPING DECLINES AM MEAL AT THIS TIME.
--- NOTE | 2017-10-13 09:15 | NUR ---
PT DOZING AROUSES TO LOUD VERBAL STIMULI, CALL [place] WITHIN REACH, WILL CONTINUE TO MONITOR.
--- NOTE | 2017-10-13 10:44 | NUR ---
PT TO CT VIA WHEELCHAIR WITH 2 MOD ASSIST, TO STANDING TO TRASNFER TO WHEELCHAIR.
--- NOTE | 2017-10-13 11:03 | NUR ---
PT BACK FROM CT 2 MOD/MAX ASSIST TO RECLINER, CALL [place] WITHIN REACH.
--- NOTE | 2017-10-13 11:12 | NUR ---
PT TALKING ABOUT HE GOES WHERE HE WANTS TO, AND DOES WHAT HE WANTS TO, WHEN REMINDED THAT HE HAS TOLD STAFF HE CAN'T FEED HIMSELF, AND HE CAN'T STAND HE DENIES SAYING THESE THINGS, CALL [place] WITHIN REACH
--- NOTE | 2017-10-13 11:20 | NUR ---
PT ATTEMPTING TO CALL FRIEND CITLALY ON THE PHONE, ASSISTANCE PROVIDED TO PLACE PHONE CALL ORDERED
--- NOTE | 2017-10-13 11:40 | NUR ---
PT REMAINS SITTING UP IN RECLINER, CALL [place] WITHIN REACH, WILL COTNINUE TO MONITOR.
--- NOTE | 2017-10-13 12:00 | NUR ---
TOLERATED AFTERNOON MEAL WELL AND FED HISMLEF AFTER SET UP ASSIST W/O INCIDENT, CALL [place] WITHIN REACH, REMAINS SITTING UP IN RECLINER, WILL CONTINUE TO MONITOR.
[2017-10-13] MEDS ORDERED: LABETALOL HCL5 MG/ML IV (14:16)
[2017-10-13] MEDS ORDERED: LEVEMIR100 UNIT/M SC (14:18)
[2017-10-13] MEDS ORDERED: INVANZ1 GM IJ (14:23)
--- NOTE | 2017-10-13 14:48 | NUR ---
PT STTOD WITH 2 MOD ASSIST AND TOOK 10-12 STEPS TO WHEELCHAIR, TO RADIOLOGY FOR PICC PLACEMENT VIA W/C
--- NOTE | 2017-10-13 15:19 | NUR ---
PT BACK FROM RADIOLOGY WITH MIDLINE IN [place]. CUT OFF AT 15CM PER RADIOLOGY, DRESSING CLEAN DRY AND INTACT.
--- NOTE | 2017-10-13 16:07 | NUR ---
SALAS REMOVED INTACT, PT INSTRUCTED TO USE URINAL FOR VOIDS.
--- NOTE | 2017-10-13 16:44 | NUR ---
STAFF MEMBER HERE FROM [facility] TO TRANSFER PT TO WITH IV ACCESS AND MIDLINE IN PLACE, PT STOOD AND TRANSFERRED TO WHEELCHAIR WITH ONE MOD ASSIST, PT 2 CELLPHONES SENT WITH HIM, ALL OTHER BELOGINGS RETAINED TO SEND WITH FRIEND CITLALY PER PT REQUEST.
== END 2017-10-13 16:40 | DRG 682 ==
LOC: ED 11:27 → ED-I 15:35 → ED 16:13 → MS2 16:14 → ICU 10-12 04:01
PROVIDERS: Emergency Medicine; Internal Medicine; Internal Medicine Geriatric Medicine; Nurse Practitioner Family; ADMIT Internal Medicine; ATTEND Internal Medicine
PROC: 5A09357 Assistance with Respiratory Ventilation, Less than 24 Consecutive Hours, Continuous Positive Airway Pressure (ICD-10-PCS; 2017-10-12)
PROC: 05HB33Z Insertion of Infusion Device into Right Basilic Vein, Percutaneous Approach (ICD-10-PCS; principal; 2017-10-13)
PROC: B51MZZA Fluoroscopy of Right Upper Extremity Veins, Guidance (ICD-10-PCS; 2017-10-13)
DX: N17.9 Acute kidney failure, unspecified (principal); J18.9 Pneumonia, unspecified organism; E11.42 Type 2 diabetes mellitus with diabetic polyneuropathy; E11.22 Type 2 diabetes mellitus with diabetic chronic kidney disease; E11.51 Type 2 diabetes mellitus with diabetic peripheral angiopathy without gangrene; E86.0 Dehydration; E87.1 Hypo-osmolality and hyponatremia; E11.65 Type 2 diabetes mellitus with hyperglycemia; I12.9 Hypertensive chronic kidney disease with stage 1 through stage 4 chronic kidney disease, or unspecified chronic kidney disease; N18.9 Chronic kidney disease, unspecified; H54.62 Unqualified visual loss, left eye, normal vision right eye; D64.9 Anemia, unspecified; R41.82 Altered mental status, unspecified; Z86.73 Personal history of transient ischemic attack (TIA), and cerebral infarction without residual deficits; Z91.14 Patient's other noncompliance with medication regimen
CPT/HCPCS: G0378

== ENCOUNTER 2018-01-04 09:01 | Inpatient (IN) | payer MEDICARE ==
[2018-01-04] VITALS (9 sets, daily range): BP systolic 94–128; BP diastolic 53–69
[~2018-01-04] VITALS: Ht 160 cm; Wt 52.0 kg
[~2018-01-04 09:01] MED LIST changes: +INVANZ1 GM IJ; +LABETALOL HCL5 MG/ML IV; +LEVEMIR100 UNIT/M SC
--- NOTE | 2018-01-04 09:02 | NUR ---
PT TO ROOM VIA EMS STRETCHER. PT ALERT TO PERSON.
--- NOTE | 2018-01-04 10:01 | NUR ---
RECVD REPORT FROM JAMES KESSLER AT BEGINING OF SHIFT. PT RECVING BREATHING TREATMETN. STRAIGHT CATH COMPLETED FOR UA SAMPLE. PT RESPONDS WHEN SPOKEN TO BUT NOT A&O.
--- NOTE | 2018-01-04 10:08 | NUR ---
BM CLEANED UP & FRESH BREIF PLACED. BUTTOCKS PINK BUT NO BREAKDOWN.
[2018-01-04 10:16] LABS: IMMATURE GRANULOCYTES 0.7 % (0.0-1.0); MEAN CELL VOLUME 90.4 fL CALC (80.0-100.0); MEAN CORPUSCULAR HGB 30.4 pG CALC (26.0-32.0); MEAN CORPUSCULAR HGB CONC 33.6 g/L CALC (32.0-36.0); NEUT# 9.7 thou/uL (1.82-7.42); RED BLOOD COUNT 4.28 mill/uL (4.70-6.10); RED CELL DISTRI WIDTH 13.7 % (11.5-15.5)
[2018-01-04 10:18] LABS: HEMATOCRIT 38.7 % (39.0-50.0)
[2018-01-04] MEDS ORDERED: LEXAPRO10 MG PO (10:55)
[2018-01-04] MEDS ORDERED: LISINOPRIL10 MG PO (10:56)
[2018-01-04 10:57] LABS: URINE BILIRUBIN - DIPSTICK NEGATIVE (NEGATIVE); URINE BLOOD DIPSTICK TRACE-LYSED (NEGATIVE); URINE COLOR YELLOW; URINE GLUCOSE - DIPSTICK 250 mg/dL (NEGATIVE); URINE KETONE NEGATIVE (NEGATIVE); URINE LEUK ESTERASE NEGATIVE (NEGATIVE); URINE NITRITE - DIPSTICK NEGATIVE (Negative); URINE PROTEIN - DIPSTICK >=300 mg/dL (NEG-TRACE); URINE UROBILINOGEN - DIPSTICK 0.2 E.U./dL (0.2)
[2018-01-04] MEDS ORDERED: HALDOL5 MG PO (10:57)
[2018-01-04] MEDS ORDERED: SEROQUEL25 MG (10:59)
[2018-01-04] MEDS ORDERED: [UNRECOGNIZED DRUG - OTHER] (11:00)
[2018-01-04] MEDS ORDERED: NOVOLOG FL100 UNIT/M (11:01)
[2018-01-04 11:04] LABS: URINE CLARITY CLOUDY; URINE RBC 0-2 RBC/hpf (0-5)
[2018-01-04 11:04] LABS: ALBUMIN 3.3 g/dL (3.2-5.0); BILIRUBIN, TOTAL 0.5 mg/dL (0.0-1.4)
[2018-01-04 11:05] LABS: URINE AMORPH SEDIMENT MANY hpf (NONE-FER); URINE EPITHELIAL CELLS MODERATE EPI/hpf (0-FEW); URINE MUCUS MODERATE hpf (NONE-FEW)
--- NOTE | 2018-01-04 11:05 | NUR ---
CHARGE NURSE SPOKE WITH FAMILY OVER THE PHONE. NOTIFIED WE ARE STILL RUNNING TESTS. PT LAYING IN BED QUEITLY.
[2018-01-04 11:06] LABS: CREATININE 5.6 mg/dL (0.7-1.3); POTASSIUM 5.7 mmol/l (3.5-5.1); TOTAL PROTEIN 6.7 g/dL (6.3-8.2)
--- NOTE | 2018-01-04 12:04 | NUR ---
ENTERED ROOM, PT PULLED OUT IV & PULLED OFF NC. PT TRYING TO REMOVE CARDIAC LEADS. NEW IV ESTABLISHED. AWARE.
--- NOTE | 2018-01-04 12:49 | NUR ---
SBAR PRINTED TO FLOOR
--- NOTE | 2018-01-04 13:05 | NUR ---
MD AWARE OF BP. 500ML NACL ORDERED. PT SLEEING IN BED, HEAD OF BED FLAT.
--- NOTE | 2018-01-04 13:11 | NUR ---
SBAR PRINTED TO ICU
--- NOTE | 2018-01-04 13:18 | NUR ---
BP VERIFIED BY MANUAL BP. PT SLEEPING BUT EASILY AROUSED. SEIZURE PADS STILL IN PLACE.
--- NOTE | 2018-01-04 13:32 | NUR ---
Admission Note Report Given to: AMARI Transported by: Wheelchair X Stretcher Transported with: X Nurse Transporter X Patent IV X O2 X Wood Experimental Mechanic
--- NOTE | 2018-01-04 13:42 | NUR ---
PT TRANSFERED TO ICU BED 4 WITH TELE IN STABLE CONDITION.
--- NOTE | 2018-01-04 13:50 | NUR ---
PT ADMITTED TO ICU BED 4 FROM ER VIA STRETCHER, PT MAX TRANSFER TO BED, ALL MONITORING EQUIPMETN EXPLAINED PRIOR TO APPLICATION, ADMISSION ASSESSMENT COMPLETED TO BEST OF WRITERS ABILITY, MOST OF HISTORY OBTAINED FROM OLD RECORD PT NOT COOPERATVIE WITH HISTORY, ANSWERS SOME QUESTIONS IGNORES OTHERS, DOES NOT OPEN EYES, FOLLOWS SOME COMMANDS AND IGNORES OTHERS, SKIN WARM DRY AND INTACT WITH SOME MIL REDNESS NOTED TO COCCYX AREA, NO URINE NOTED WHEN ASKED ABOUT CONTINENCE PT DOES NOT ANSWER, LUNGS CORASE WITH NO SOB OR DISTRESS NTOED, O2 ON AT 3L VIA NC WITH SATS 97%, BP STABLE, AFEBRILE, IV ACCESS INTACT IN RAC WITH IVF INFUSING AT 75mL/HR, WILL OBTAIN FURTHER ORDERS FROM , ABD SOFT BS ACTIVE LAST BM IN EMERGENCY ROOM PER REPORT (PT INCONTINENT WHILE IN ER) PPPB BUT WEAK, BILATERAL FEET SLIGHTLY COOL TO TOUCH BUT NO DISCOLORATION OR EDEMA NOTED, CALL [place] WITHIN REACH, SAFETY MEASURES INTRODUCED, ORIENTED TO ROOM AND UNIT, PT DOES NOT RESPOND WHEN ASKED IF HE HAS ANY QUESTIONS, PT IS EASILY VISIBLE FROM NURSES STATION FOR SAFETY RELATED TO REPORTED CONFUSION AND DEMENTIA HISTORY
[2018-01-04 14:01] LABS: CREATININE 5.5 mg/dL (0.7-1.3); POTASSIUM 5.6 mmol/l (3.5-5.1)
--- NOTE | 2018-01-04 14:35 | NUR ---
PT RESTING IN BED, NO COMPLAINTS OFFERED, IVF CONTINUE WITHOUT INCIDENT, PULSE OX REMAINS 94-97% ON 3L NC, EASILY VISIBLE FROM NURSES STATION FOR SAFETY, WILL CONTINUE TO MONITOR.
--- NOTE | 2018-01-04 15:17 | NUR ---
PT DOZING BP SLOWLY TRENDING DOWN, CONTINUES TO MAINTAIN MAP >65, WILL CONTINUE TO MONITOR.
--- NOTE | 2018-01-04 15:52 | NUR ---
PT REMAINS RESTING IN BED, REPOSITIONS SELF OCCASIONALLY, CALL [place] WITHIN REACH, EASILY VISIBLE FROM NURSES STATION, WILL CONTINUE TO MONITOR
--- NOTE | 2018-01-04 17:12 | NUR ---
PT PROVIDED WITH WTAER TOLERATED DRINKING W/O INCIDENT, CALL [place] WITHIN REACH, REMAINS EASILY VISIBLE FROM NURSES STATION, WILL CONTINUE TO MONITOR.
--- NOTE | 2018-01-04 17:25 | NUR ---
IN TO SEE PATIENT, PLAN OF CARE DISCUSSED AND NEW ORDERS REC'D.
--- NOTE | 2018-01-04 18:23 | NUR ---
SET UP ASSIST PROVIDED FOR PM LINDSEY, PT DROWSY AND DOZING AT THIS TIME, WILL LEAVE AT BEDTIME FOR LATER SHOULD DESIRE IT.
--- NOTE | 2018-01-04 21:41 | NUR ---
1845 report received from roberto nascimento 1900 pt asleep and no distress noted. iv infusing as ordered. vss 1999 assessment completed as charted.
--- NOTE | 2018-01-04 22:17 | NUR ---
2200 pt resting quietly, no distress noted
[2018-01-05] VITALS (8 sets, daily range): BP systolic 107–127; BP diastolic 65–75
--- NOTE | 2018-01-05 00:17 | NUR ---
0000 pt asleep, pt given blankets for warmth and o2 reapplied after pt pulled it off.
--- NOTE | 2018-01-05 04:20 | NUR ---
0400 pt asleep and no distress noted, vss.
[2018-01-05 05:32] LABS: IMMATURE GRANULOCYTES 0.7 % (0.0-1.0); MEAN CELL VOLUME 89.8 fL CALC (80.0-100.0); MEAN CORPUSCULAR HGB 30.5 pG CALC (26.0-32.0); NEUT# 7.89 thou/uL (1.82-7.42); RED BLOOD COUNT 3.54 mill/uL (4.70-6.10); RED CELL DISTRI WIDTH 13.4 % (11.5-15.5)
[2018-01-05 05:48] LABS: BILIRUBIN, TOTAL 0.4 mg/dL (0.0-1.4); TOTAL PROTEIN 5.8 g/dL (6.3-8.2)
[2018-01-05 05:56] LABS: ALBUMIN 2.6 g/dL (3.2-5.0); POTASSIUM 5.5 mmol/l (3.5-5.1)
[2018-01-05 05:57] LABS: CREATININE 6.1 mg/dL (0.7-1.3)
--- NOTE | 2018-01-05 06:07 | NUR ---
0600 PT ASLEEP, NO DISTRESS NOTED, VSS
[2018-01-05 06:19] LABS: HEMATOCRIT 31.8 % (39.0-50.0); HEMOGLOBIN 10.8 g/dl (14.0-18.0)
--- NOTE | 2018-01-05 07:30 | NUR ---
PT ALERT ABLE TO FOLLOW SOME COMMANDS, IGNORES OTHERS. PT REMOVED IV TO RAC, CATHETER INTACT, PT DENIES PAIN, LS COARSE THROUGHOUT, INTERMITTENT NON-PRODUCTIVE COUGH NOTED,BS X 4 ACTIVE, PT INCONTINENT OF BLADDER IN BRIEF. PT DOES NOT OPEN EYES, PT BLIND IN LEFT EYE. SKIN TURGUR NORMAL, SOME REDNESS NOTED AT GROIN, [facility]RIST CARE PROVIDED. PT ABLE TO TAKE PO FLUIDS WITHOUT DIFFICULTY NOTED. 20G STARTED TO R HAND, WITHOUT DIFFICULTY, FLUSH WITHOUT RESISTANCE. pT REPOSITIONED. NO S/S OF PAIN, SOB OR DISTRESS NOTED AT THIS TIME. PT SA02 99%ON RA. STAFF MUST ANTICIPATE NEEDS, CALL LIGHT IN REACH, WILL MONITOR.
--- NOTE | 2018-01-05 08:30 | NUR ---
PT REPOSITIONED IN BED, BREAKFAST TRAY SET UP, PT CONTINUES PULLING AT IV SITE, SITE CDI AT THIS TIME WITH NS @75ML/HR, NO S/S OF INFILTRATE/REDNESS AT SITE. ASSISTANCE GIVEN TO PT SET UP/FEED, PT DECLINED. PT TAKES PO FLUIDS WITHOUT DIFFICULTY , PT SA02 100%RA, SR ON TELEMETRY, AFEBRILE. DR. CASTANEDA AT FOR ASSESSMENT, PT TO BE TRANSFERRED TO [facility] FOR RENAL CONSULT WITH DR. FERNANDEZ FOR DIALYSIS, WITH DR. SMALL ADMITTING. WILL MONITOR.
--- NOTE | 2018-01-05 10:00 | NUR ---
PT RESTING IN BED, REMAIN SR ON TELEMETRY, AFEBRILE, ABLE TO FOLLOW SOME COMMAND, NOT OTHERS. STAFF MUST ANTICIPATE NEEDS. PT REPOSITIONED, GOWN CHANGED, PERICARE GIVEN. PT CONTINUES PULLING AT GOWN AND IV . IV SITE CDI, INFUSING ORDERED, NO S/S OF INFILTRATE OR REDNESS NOTED. WILL MONITOR.
--- NOTE | 2018-01-05 10:30 | NUR ---
CALLED [facility], SPOKE WITH JAMES GREENPATCH MACHINE OPERATOR TO SCHEDULE TRANSFER. FAX SENT TO [phone] .
--- NOTE | 2018-01-05 11:15 | NUR ---
PETER WITH R CALLED WITH BED ASSIGNMENT, PT TO BE TRANSFERRED TO [facility] ICU, BEDD 248 UNDER THE CARE OF DR. SMALL. [facility] NOTIFIED, SPOKE WITH CHRISTIANO, REPORT GIVEN, TRANSPORT APPROX ETA 30-45MINUTES. PT RESTING IN BED, NO S/S OF SOB, PAIN OR DISTRESS NOTED AT THIS TIME. CALL [place] IN REACH, STAFF ANTICIPATING NEEDS. WILL MONITOR.
--- NOTE | 2018-01-05 12:15 | NUR ---
REPORT CALLED TO JAMES KEEN AT [facility] ICU. PT REPOSITIONED, PERICARE GIVEN, PT WITH 2 EPISODES OF INCONTINENCE OF URINE, BRIEF REPLACED, IVF STOPPED. PT REMAINS IN SR ON TELEMETRY, VSS, SA02 100% RA. PT DENIES SOB, PAIN OR DISTRESS AT THIS TIME. CALL LIGHT IN REACH, WILL MONITOR.
--- NOTE | 2018-01-05 12:18 | NUR ---
PT TRANSPORTED VIA STRETCHER BY [facility] TO [facility], PT LEFT IN STABLE CONDITION, PETER AUTOMATION CONTROL INTEGRATOR [facility] NOTIFIED OF ETA.
== END 2018-01-05 12:18 | DRG 314 ==
LOC: ED 09:01 → ED-I 09:37 → ED 12:49 → ICU 12:50
PROVIDERS: Emergency Medicine; ADMIT Internal Medicine Geriatric Medicine; ATTEND Internal Medicine Geriatric Medicine
DX: I95.9 Hypotension, unspecified (principal); J18.9 Pneumonia, unspecified organism; E11.649 Type 2 diabetes mellitus with hypoglycemia without coma; E11.21 Type 2 diabetes mellitus with diabetic nephropathy; E87.2 Acidosis; F03.90 Unspecified dementia, unspecified severity, without behavioral disturbance, psychotic disturbance, mood disturbance, and anxiety; E86.0 Dehydration; G40.89 Other seizures; E11.22 Type 2 diabetes mellitus with diabetic chronic kidney disease; I12.9 Hypertensive chronic kidney disease with stage 1 through stage 4 chronic kidney disease, or unspecified chronic kidney disease; N18.9 Chronic kidney disease, unspecified; H54.62 Unqualified visual loss, left eye, normal vision right eye; F41.9 Anxiety disorder, unspecified; I25.10 Atherosclerotic heart disease of native coronary artery without angina pectoris; K21.9 Gastro-esophageal reflux disease without esophagitis; F31.9 Bipolar disorder, unspecified
CPT/HCPCS: J2060